=== PATIENT | female | born 1950 | race Caucasian/White ===

== ENCOUNTER → 2018-01-20 08:00 | Outpatient (CLI) | payer MEDICARE, OTHER ==
[2012-05-27 08:12] VITALS: BMI 25.8
== END | disposition home or self-care (01) ==
LOC: D.MAMMO 08:00
DX: Z12.31 Encounter for screening mammogram for malignant neoplasm of breast (principal)

== ENCOUNTER 2019-04-14 08:00 | Outpatient (CLI) | payer MEDICARE ==
[2012-05-27 08:12] VITALS: BMI 25.8
== END 2019-04-14 08:30 | disposition home or self-care (01) ==
LOC: D.MAMMO 08:00
PROVIDERS: ATTEND Emergency Medicine
DX: Z12.31 Encounter for screening mammogram for malignant neoplasm of breast (principal)

== ENCOUNTER → 2019-07-02 09:19 | Outpatient (CLI) | payer MEDICARE, OTHER ==
[2012-05-27 08:12] VITALS: BMI 25.8
== END | disposition home or self-care (01) ==
LOC: D.ECHO 09:19
PROVIDERS: ATTEND Internal Medicine Medical Oncology
DX: D72.829 Elevated white blood cell count, unspecified (principal); Z51.11 Encounter for antineoplastic chemotherapy

== ENCOUNTER 2019-10-05 08:21 | Outpatient (CLI) | payer MEDICARE, OTHER ==
[~2019-10-05] VITALS: Ht 152.4 cm; Wt 56.6 kg
--- NOTE | ~2019-10-05 | HEMODYNAMI ---
PATIENT:ARIEL ALSTON MEDICAL RECORD: [id number] : 48 LOCATION:[facility] ADMISSION DATE: 10/05/19 Generatedon:10/05/201911:33 Patient name: ARIEL ALSTON Patient #: [id number] : 1950 Date of study: 10/05/2019 Page: Of Hemodynamic Procedure Report Patient Data Patient Demographics Procedure consent was obtained First Name: ARIEL Gender: Female Last Name: ALECIA : 1950 Patient #: [id number] Age: 68 year(s) Race: Unknown SSN: [id number] Additional ID: [id number] Contact details [address]: [address] [place] [address] State: [place] City: [place] Zip code: [address] Past Medical History Allergies Allergen Reaction Date Comments Reported Codeine 10/05/2019 Admission Admission Data Admission Date: 10/05/2019 Admission Time: 8:21 Arrival Date: 10/05/2019 Arrival Time: 0:00 Admit Source: Other Insurance Payor: Medicare [facility] #: [id number] Height (in.): 62 BSA: 1.57 (m2) Height (cm.): 157.48 BMI: 23.05 (kg/m2) Weight (lbs.): 126 Weight (kg.): 57.15 Lab Results Lab Result Date: 10/05/2019 Lab Result Time: 0:00 Biochemistry Name Units Result Min Max BUN mg/dl 12 --(-*--)-- 7 18 Creatinine mg/dl 0.8 --(-*--)-- 0.6 1.3 eGFR ml/min 75 *-(----)-- 90 120 NONAFRICAN CBC Name Units Result Min Max Hematocrit % 33.1 *-(----)-- 42 54 Hemoglobin g/dl 10.5 *-(----)-- 13.5 17.5 Procedure Procedure Types Cath Procedure Diagnostic Procedure LHC LHC w/Coronaries Sedation Charges Moderate Sedation up to 15 minutes Procedure Description Procedure Date Procedure Date: 10/05/2019 Procedure Start Time: 11:22 Procedure End Time: 11:31 Procedure Staff Name Function Jony Rodgers MD Performing Physician Lena Walsh RT Monitor Altagracia Dominguez RT Scrub Galen Nieves RN Nurse Procedure Data Cath Procedure Fluoroscopy Diagnostic fluoroscopy Total fluoroscopy Time: 2 time: 2 min min Diagnostic fluoroscopy Total fluoroscopy dose: 260 dose: 260 mGy mGy Contrast Material Contrast Material Type Amount (ml) Isovue 300 58 Entry Location Entry Primary Successful Side Size Upsize Upsize Entry Closure Succes sful Closure Location (Fr) 1 (Fr) 2 (Fr) Remarks Device Remarks Femoral Right 5 Fr Exoseal artery Estimated blood loss: 5 ml Diagnostic catheters Device Type Used For End Catheter Placement MULTIPACK Pigtail 5 Fr Procedure catheter MULTIPACK JL 4.0 5Fr Procedure catheter MULTIPACK 3DRC 5Fr Procedure catheter DIAGNOSTIC JL 3.5 5Fr Procedure catheter ([id number]) Procedure Complications No complications Procedure Medications Medication Administration Route Dosage 0.9% NaCl I.V. 100 ml/hr Oxygen etCO2 Nasal cannula 2 l/min Heparin Flush Bag added to field 2 bags (1000units/500ml NS) Lidocaine 2% added to field 20 Versed I.V. 2 mg Fentanyl I.V. 100 mcg Versed I.V. 1 mg Hemodynamics Rest BSA: 1.57 (m2) HGB: 10.5 (g/dl) O2 Consumption: Estimated: 143.63 (ml/min) O2 Co nsumption indexed: Estimated:91.48 (ml/min/m) Heart Rate: 68 (bpm) Snapshots Pre Cath Intra NCS Post Cath Vital Signs Time Heart Resp SPO2 etCO2 NIBP (mmHg) Rhythm Pain Sedation Rate (ipm) (%) (mmHg) Status Level (bpm) 10:46:00 67 26 97 0 126/77(99) NSR 0 (11) 10(A) , No pain 10:50:12 67 15 93 18.4 134/75(90) NSR 0 (11) 10(A) , No pain 10:54:28 61 10 98 30.3 136/72(123) NSR 0 (11) 10(A) , No pain 10:58:42 62 12 98 8.1 122/70(106) NSR 0 (11) 10(A) , No pain 11:02:54 66 10 98 28.8 124/70(83) NSR 0 (11) 10(A) , No pain 11:07:08 61 12 99 13.2 127/66(110) NSR 0 (11) 10(A) , No pain 11:11:14 68 13 99 16.2 136/94(112) NSR 0 (11) 10(A) , No pain 11:15:28 68 11 99 26.6 130/81(117) NSR 0 (11) 10(A) , No pain 11:19:44 61 18 98 0 112/69(82) NSR 0 (11) 10(A) , No pain 11:23:54 63 11 98 0 115/62(87) NSR 0 (11) 9(A) , No pain 11:28:06 66 1 98 0 122/61(87) NSR 0 (11) 9(A) , No pain Medications Time Medication Route Dose Verified Delivered Reason Notes Eff ectiveness by by 10:44:24 0.9% NaCl I.V. 100 Galen Galen Per ml/hr Lizbeth Nieves physician RN RN 10:44:32 Oxygen etCO2 2 Galen Galen for low 02 Nasal l/min Lorigan Lorigan sats cannula RN RN 10:44:42 Heparin Flush added 2 Galen Galen used for Bag to bags Lorigan Lizbeth procedure (1000units/500ml field RN RN NS) 10:44:52 Lidocaine 2% added 20ml Galen Galen for local to vial Lorigan Lorigan anesthetic field RN RN 11:18:30 Versed I.V. 2 mg Galen Galen for Lorigan Lorigan sedation RN RN 11:18:40 Fentanyl I.V. 100 Galen Galen for mcg Lorigan Lorigan sedation RN RN 11:23:07 Versed I.V. 1 mg Galen Galen for Lorigan Lorigan sedation RN organizational consultant Log Time Note 10:30:15 Galen Nieves RN sent for patient. Start room use. 10:32:39 Arrival Date: 10/05/2019 12:00:00 AM 10:32:51 Admit Source: Other 10:33:00 Insurance Payor : Medicare 10:33:19 Patient Height : 62 inches 10:33:22 Patient Weight : 126 lbs 10:36:39 Lab Result : BUN 12 mg/dl 10:36:39 Lab Result : Hematocrit 33.1 % 10:36:39 Lab Result : Hemoglobin 10.5 g/dl 10:36:39 Lab Result : Creatinine 0.8 mg/dl 10:36:39 Lab Result : eGFR NONAFRICAN 75 ml/min 10:37:24 Time tracking: Regular hours (M-F 7:00 - 5:00) 10:37:27 Plan of Care:Hemodynamics will remain stable., Cardiac rhythm will remain stable., Comfort level will be maintained., Respiratory function will remain adequate., Patient/ family verbilizes understanding of procedure., Procedure tolerated without complication., Recovers from procedure without complications.. 10:37:32 Procedure Status Elective Heart Cath (OP). 10:37:47 H&P Date Dictated: 09/16/2019 Within 30 days and on chart., H&P Addendum completed by physician on day of procedure. (MUST COMPLETE FOR ALL OUTPATIENTS). 10:41:12 Patient received from Pre/Post Procedure Room to CCL 1 Alert and oriented. Tansferred to table in Supine position. 10:41:13 Warm blankets applied, and kathe hugger turned on for patient comfort. 10:41:16 Signed procedure consent form obtained from patient. 10:41:17 Correct patient and procedure confirmed by team. 10:41:17 ECG and BP/O2 sat monitors applied to patient. 10:41:34 Baseline sample Acquired. 10:41:39 Rhythm: sinus rhythm 10:41:40 Full Disclosure recording started 10:41:40 Pre-procedure instructions explained to patient. 10:41:41 Pre-op teaching completed and patient verbalized understanding. 10:41:42 Family in waiting room. 10:41:45 Patient NPO since Midnight. 10:41:51 Patient allergic to Codeine 10:41:53 Is the patient allergic to Iodine/contrast media? No. 10:41:55 Is patient on blood thinner?No 10:41:57 Patient diabetic? No. 10:42:00 Patient not . Patient is over age 55. 10:42:40 Previous problem with sedation/anesthesia? No ? 10:42:42 Snore? Yes 10:42:53 Sleep apnea? No 10:42:55 Deviated septum? No 10:42:57 Opens mouth fully? Yes 10:42:58 Sticks out tongue? Yes 10:43:00 Airway obstruction? No ? 10:43:13 Dentures? No ? 10:43:17 Modified Gio's test Ulnar > 7 seconds. 10:44:24 0.9% NaCl 100 ml/hr I.V. was administered by Galen Nieves RN; Per physician; Verbal order read back and verified. 10:44:32 Oxygen 2 l/min etCO2 Nasal cannula was administered by Galen Nieves RN; for low 02 sats; Verbal order read back and verified. 10:44:42 Heparin Flush Bag (1000units/500ml NS) 2 bags added to field was administered by Galen Nieves RN; used for procedure; Verbal order read back and verified. 10:44:45 IV patent on arrival in left hand with 0.9% NaCl at [facility]. 10:44:52 Lidocaine 2% 20ml vial added to field was administered by Galen Nieves RN; for local anesthetic; Verbal order read back and verified. 10:44:57 Vital chart was started 10:46:34 Lab results completed and on chart. 10:46:38 Right groin area was prepped with chlora-prep and draped in sterile fashion 10:46:39 Alarms reviewed by R. N. 10:46:40 Sharps counted by scrub and verified by R.N. 10:52:54 Risk of Mortality: .6 10:53:12 Risk of blood transfusion: 6.7 10:53:15 Risk of KATHARINA: 1.7 10:53:30 Stress Test: yes; abnormal MULTIVESSEL 11:12:47 Use device set Femoral Dx 11:12:55 ACIST Syringe (48621) opened to sterile field. 11:12:56 Bag Decanter () opened to sterile field. 11:12:57 ACIST Hand Control (51664) opened to sterile field. 11:14:11 ACIST Manifold (25720) opened to sterile field. 11:14:13 Tegaderm 4 x 4 (1626W) opened to sterile field. 11:14:13 Medline Cath Pack ([id number]) opened to sterile field. 11:14:14 DIAGNOSTIC Multipack 5Fr catheter set ([id number]) opened to sterile field. 11:14:15 SHEATH 5FR Midland (USW512) opened to sterile field. 11:14:16 EMERALD Guide Wire (116-951) opened to sterile field. 11:15:53 --------ALL STOP TIME OUT------ 11:15:54 Final Timeout: patient, procedure, and site verified with staff and physician. All members of the team are in agreement. 11:15:55 Right groin site verified by team. 11:15:59 Fire Safety Assessment: A--An alcohol-based skin anteseptic being used preoperatively., C--Open oxygen or nitrous oxide is being used., D--An ESU, laser, or fiber-optic light is being used. 11:16:01 Physical assessment completed. ASA score P 2 - A patient with mild systemic disease as per Jony Rodgers MD. 11:16:03 2) 60-89 Mildly reduced kidney function, and other findings (as for stage 1) point to kidney disease. 11:16:06 Maximum allowable contrast dose (3.7 X eGFR X 0.75)208 ml. 11:16:09 Sedation plan: IV Moderate Sedation Medication:Versed, Fentanyl 11:17:38 Zero performed for pressure channel P1 11:18:30 Versed 2 mg I.V. was administered by Galen Nieves RN; for sedation; Verbal order read back and verified. 11:18:40 Fentanyl 100 mcg I.V. was administered by Galen Nieves RN; for sedation; Verbal order read back and verified. 11:22:15 Procedure started. 11:22:52 Local anesthetic to right femoral artery with Lidocaine 2% by Jony Rodgers MD.INITIAL ACCESS ONLY 11:23:07 Versed 1 mg I.V. was administered by Galen Nieves RN; for sedation; Verbal order read back and verified. 11:23:39 A 5 Fr sheath was inserted into the Right Femoral artery 11:24:14 A MULTIPACK Pigtail 5 Fr catheter was advanced over the wire and used for Procedure. 11:24:15 LV gram done using COOK 11:24:19 Injector settings: Ml/sec: 10, Volume: 20, 11:24:31 EF : 55 % 11:24:33 Catheter removed. 11:24:48 A MULTIPACK JL 4.0 5Fr catheter was advanced over the wire and used for Procedure. 11:25:42 LCA angiography performed. 11::28 Catheter removed. 11::33 A MULTIPACK 3DRC 5Fr catheter was advanced over the wire and used for Procedure. 11:27:10 RCA angiography performed. 11:27:13 Catheter removed. 11:27:18 A DIAGNOSTIC JL 3.5 5Fr catheter ([id number]) was advanced over the wire and used for Procedure. 11:28:39 LCA angiography performed. 11::42 Catheter removed. 11:29:12 EXOSEAL 5Fr (EX500) opened to sterile field. 11:29:39 Sheath removed intact; hemostasis achieved with Exoseal to the Right Femoral artery. 11:29:41 Procedure ended.(Physican Out) 11:29:50 Fluoroscopy time 02.00 minutes. 11:29:54 Fluoroscopy dose: 260 mGy 11::54 Flurop Dose total: 260 11:29:59 Dose Area Product 49972 mGy/cm. 11:30:12 Contrast amount:Isovue 300 58ml. 11:30:14 Maximum allowable dose exceeded? No. 11:30:15 Sharps counted by scrub and verified by R.N. 11:30:18 Post-op/insertion site Right Femoral artery dressed using a 4 x 4 and Tegaderm. 11:30:21 Post-procedure physical assessment completed. ASA score P 2 - A patient with mild systemic disease as per Jony Rodgers MD. 11:30:24 Post procedure rhythm: sinus rhythm 11::27 Estimated blood loss: 5 ml 11:30:28 Post procedure instruction explained to patient.Patient verbalizes understanding. 11:30:28 Patient needs reinforcement of post procedure teaching. 11::42 Procedure type changed to Cath procedure, Diagnostic procedure, LHC, [facility] w/Coronaries, Sedation Charges, Moderate Sedation up to 15 minutes 11:30:57 Procedure and supply charges have been captured, reviewed, submitted and are correct. 11:31:00 Procedure Complication : No complications 11:31:03 Vital chart was stopped 11:31:08 [facility] Findings: mild to moderate CAD (<70%) 11:31:11 Operative report dictated upon procedure completion. 11:31:12 See physician's report for complete and final results. 11:31:13 Report given to Pre/Post Procedure Room. 11:31:16 Patient transfered to Pre/Post Procedure Room with Bed. 11:31:18 Procedure ended. 11:31:18 Full Disclosure recording stopped 11:31:23 End room use (Document Last) 11:33:16 End room use (Document Last) 11:33:33 End room use (Document Last) Device Usage Item Name Manufacture Quantity Catalog Hospital Part Current Minimal L ot# / Number Charge Number Stock Stock Serial# Code ACIST Acist 1 58194 401139 [id number] [id number] 20 Syringe Medical (85181) Systems Inc Bag Microtek 1 002079 47019 820272 5 Decanter Medical Inc. () ACIST Hand Acist 1 32125 256274 812663 605427 5 Control Medical (58801) Systems Inc ACIST Acist 1 88123 433588 645593 386213 5 Manifold Medical (82456) Systems Inc Tegaderm 4 3M 1 1626W 220591 261867 292424 5 x 4 (1626W) Medline Medline 1 [id number] 085992 20717 169669 5 Cath Pack ([id number]) DIAGNOSTIC Cardinal 1 [id number] 842923 35895 950830 30 Multipack Health 5Fr catheter set (GI1709) SHEATH 5FR Terumo 1 LGH178 413802 052981 892251 5 Midland (JFE363) EMERALD Cardinal 1 502-455 118927 542778 403550 5 Guide Wire Health (502455) MULTIPACK Cardinal 1 136503 5 Pigtail 5 Health Fr catheter MULTIPACK Cardinal 1 233115 5 JL 4.0 5Fr Health catheter MULTIPACK Cardinal 1 071376 5 3DRC 5Fr Health catheter DIAGNOSTIC Cardinal 1 [id number] 462838 339121 482343 5 JL 3.5 5Fr Health catheter (313096J) EXOSEAL 5Fr Cardinal 1 EX500 267078 757511 596917 10 (EX500) Health Signature Audit Silver Stage Time Signature Unsigned Intra-Procedure 10/05/2019 Lena Walsh 11:33:16 AM RT(R) Intra-Procedure 10/05/2019 Galen 11:33:33 AM Lizbeth HUYNH Intra-Procedure 10/05/2019 Jony Rodgers 11:33:56 AM [place] [id number] [place] [address]
--- NOTE | ~2019-10-05 | OP ---
PATIENT NAME: ARIEL ALSTON MEDICAL RECORD: [id number] :48 LOCATION:[facility] ADMISSION DATE: SURGEON: CHRISTINA KAMINSKI MD DATE OF OPERATION: 10/05/2019 PROCEDURES: 1. Left heart catheterization. 2. Selective coronary angiography. 3. Left ventriculogram. INDICATION: Chest pain, abnormal nuclear stress test. DESCRIPTION OF PROCEDURE: After informed consent was obtained and after a detailed description of the risks, benefits as well as alternative therapies, the patient elected to proceed with angiogram and heart catheterization. The right femoral area was prepped and draped in normal sterile fashion. Right femoral artery was cannulated via modified Seldinger technique with placement of 5-Algerian sheath. All catheters exchanged through this sheath. FINDINGS: Left ventriculogram was performed in standard 30-degree COOK view, reveals good cardiac wall motion, ejection fraction estimated 60%. SELECTIVE CORONARY ANGIOGRAPHY: Left main, left anterior descending, left circumflex, right coronary artery are all smooth-walled vessels with no angiographic evidence of coronary artery disease. OVERALL IMPRESSION: 1. No angiographic evidence of coronary artery disease. 2. Normal left heart pressures. 3. Normal left ventricular systolic function. Chest pain is noncardiac in etiology. No further cardiac workup needs to be ascertained. TRANSINT:[id number] Voice Confirmation ID: [id number] DOCUMENT ID: [id number] CHRISTINA KAMINSKI MD CC: [id number] DICTATION DATE: 10/05/19 1137 CAM MILLING MACHINE OPERATOR: 10/05/19 1532 DEP CLI 10/05/19 [facility] [address] [id number]
[2019-10-05] MEDS ORDERED: ALENDRONAT70 MG/75 M PO (09:18)
[2019-10-05] MEDS ORDERED: SPRYCEL100 MG PO (09:19)
[2019-10-05] MEDS ORDERED: LOSARTAN-HCTZ1 EAC1 PO (09:19)
[2019-10-05] MEDS ORDERED: LIPITOR40 MG PO (09:19)
[2019-10-05 09:44] VITALS: BP 124/59; Ht 152.4 cm; Wt 56.6 kg
[2019-10-05 09:47] LABS: BASOPHILS 0.3 % (0-2); EOSINOPHILS 2.3 % (0-7); HEMATOCRIT 33.1 % (36.0-48.0); HEMOGLOBIN 10.5 g/dL (12-16); LYMPHOCYTES 33.1 % (15-50); MCH 29.3 pg (26.0-34.0); MCHC 31.7 g/dL (31.0-37.0); MCV 92.5 fL (80.0-100.0); MEAN PLATELET VOLUME 8.1 fL (7.4-10.4); NEUTROPHILS 52.3 % (40-80); RBC 3.58 10x6/uL (4.00-5.40); RDW 14.8 % (11.5-14.5); WBC 3.4 10x3/uL (4.8-10.8)
[2019-10-05 09:48] LABS: PLATELET COUNT 150 10x3/uL (130-400)
[2019-10-05 10:04] LABS: ALT (SGPT) 68 U/L (10-68); CALC OSMOLALITY 277 mosm/kg (275-300); CALCIUM 8.3 mg/dL (8.5-10.1); CARBON DIOXIDE 28.4 mmol/L (21.0-32.0); CHLORIDE - SERUM 107 mmol/L (98-107); CHOL - HDL RATIO 1.8 ratio (2.3-4.1); CHOLESTEROL, TOTAL 138 mg/dL (0-200); CREATININE - SERUM 0.8 mg/dL (0.6-1.3); GLUCOSE 89 mg/dL (74-106); HDL CHOLESTEROL 78 mg/dL (32-96); LDL CHOLESTEROL 49 mg/dL (0-100); LDL-HDL RATIO 0.6 ratio (1.5-3.5); POTASSIUM - SERUM 3.6 mmol/L (3.5-5.1); SODIUM 140 mmol/L (136-145); TRIGLYCERIDE 58 mg/dL (30-200); UREA NITROGEN 12 mg/dL (7-18); eGFR NON AFRICAN AMERICAN 75 mL/min (90-120)
--- NOTE | 2019-10-05 11:40 | NUR ---
PT RECEIVED BACK TO ROOM 6 FROM MANAGER WIND FOR RECOVERY. PT SLEEPING BUT VERBALLY AROUSABLE. PT DENIES PAIN OR DISCOMFORT. IV PATENT INFUSING VIA L ARM PER ORDERS. PT PLACED ON CARDIAC MONITORS. HR NSR RATE 73, BP 146/82, RR 9 SAT 96 ON ROOM AIR. R GROIN SOFT, DRESSING CDI NO S/S HEMATMOMA NOTED. PEDAL PULSES PALPABLE. PT INSTRUCTED TO KEEP HEAD ON PILLOW AND LEG STRAIGHT, SHE VERBALIZED UNDERSTANDING. CALL LIGHT IN REACH, FAMILY AT BS.
--- NOTE | 2019-10-05 12:00 | NUR ---
PT RESTING COMFORTABLY, DENIES PAIN OR DISCOMFORT. SIPS OF APPLE JUICE GIVEN. R GROIN SOFT, DRESSING CDI NO S/S HEMATOMA NOTED. PEDAL PULSES PALPABLE. HR 60, BP 129/69, RR 12. CALL LIGHT IN REACH. DR KAMINSKI WAS IN AND SPOKE WITH PT AND FAMILY REGARDING PLAN OF CARE. NO NEW ORDERS RECEIVED.
--- NOTE | 2019-10-05 12:45 | NUR ---
R GROIN SOFT, DRESSING CDI NO S/S HEMATOMA NOTED. VSS. HOB ELEVATED SLIGHTLY. PUDDING SERVED, DECLINES TURKEY SANDWICH. CALL NEMO IN REACH, FAMILY AT BS.
--- NOTE | 2019-10-05 13:15 | NUR ---
PT RESTING COMFORTABLY. DENIES PAIN OR NEEDS. TOLERATED PO FOOD W/O NAUSEA. VSS. R GROIN REMAINS SOFT, DRESSING CDI NO S/S HEMATOMA. CALL LIGHT IN RECH
--- NOTE | 2019-10-05 13:37 | NUR ---
DISCHARGE INSTRUCTIONS REVEIWED W PT AND FAMILY, ALL VERBALIZED UNDERSTANDING. IV REMOVED W CATH INTACT, R GROIN W/O S/S HEMATOMA. PT UP TO DRESS FOR DISCHARGE.
--- NOTE | 2019-10-05 13:47 | NUR ---
PT DISCHARGED VIA WC TO WAITING IN PRIVATE VEHICLE. PT DECLINES STOPPING BY THE BR, STATES DOESN'T NEED TO GO AND NEVER AN ISSUE AFTER ANESHESIA. PT HAD ALL BELONGINGS AND DISCHARGE INSTRUCTIONS.
== END 2019-10-05 13:40 | disposition home or self-care (01) ==
LOC: D.CATH 08:21
PROVIDERS: ATTEND Internal Medicine Interventional Cardiology
DX: R07.9 Chest pain, unspecified (principal); R94.30 Abnormal result of cardiovascular function study, unspecified; I20.9 Angina pectoris, unspecified; I10 Essential (primary) hypertension; E78.5 Hyperlipidemia, unspecified; R06.09 Other forms of dyspnea

== ENCOUNTER → 2019-10-19 08:10 | Outpatient (CLI) | payer MEDICARE, OTHER ==
[2019-10-05 09:44] VITALS: BMI 24.3
[~2019-10-19 08:10] MED LIST: ALENDRONAT70 MG/75 M PO; LIPITOR40 MG PO; LOSARTAN-HCTZ1 EAC1 PO; SPRYCEL100 MG PO
== END | disposition home or self-care (01) ==
LOC: D.RT 08:00
PROVIDERS: ATTEND Internal Medicine Medical Oncology
DX: R06.02 Shortness of breath (principal); D72.829 Elevated white blood cell count, unspecified; Z51.11 Encounter for antineoplastic chemotherapy; R60.0 Localized edema

== ENCOUNTER 2020-04-25 09:25 | Emergency (ER) | payer MEDICARE, OTHER ==
[~2020-04-25] VITALS: Ht 152.4 cm; Wt 56.4 kg
[2020-04-25 09:36] VITALS: Ht 152.4 cm; Wt 56.4 kg
[2020-04-25] MEDS ORDERED: ZOLOFT50 MG PO (09:38)
[2020-04-25] MEDS ORDERED: CLEOCIN HCL300 MG PO (10:24)
[2020-04-25 11:41] VITALS: BP 181/87
== END 2020-04-25 11:41 | disposition home or self-care (01) ==
LOC: D.ER 09:25
DX: S81.852A Open bite, left lower leg, initial encounter (principal); W54.0XXA Bitten by dog, initial encounter; Y93.9 Activity, unspecified; Y92.9 Unspecified place or not applicable; I10 Essential (primary) hypertension